=== PATIENT | male | born 1950 ===

== ENCOUNTER 2020-11-27 19:37 | Emergency (ER) | payer MEDICARE, OTHER ==
[~2020-11-27] VITALS: Ht 180.3 cm; Wt 84.0 kg
[2020-11-27 19:37] VITALS: BP 171/112
--- NOTE | 2020-11-27 19:47 | PHYS DOC ---
Past Medical History Past Medical History: No Pertinent History Past Surgical History: No Surgical History Smoking Status: Never Smoker Alcohol Use: None Drug Use: None General Adult EDM: Chief Complaint: Syncope HPI: HPI: Patient is a 70 year old male presents via EMS with report of syncopal episode that occurred just prior to arrival. Patient reports he was at the [employer] standing in line when he suddenly felt very "hot ". Denies any chest pain or palpitations but reports he subsequently "passed out ". Patient reports he did fall. Denies headache or neck pain. Denies any injury. EMS arrived on scene with report of a rapid heart rate in the 220s. Patient denies history of arrhythmia. Denies nausea or vomiting. Upon arrival to the emergency department patient's heart rate had since improved to low 100s. Review of Systems: Review of Systems: Constitutional: Denies fever or chills Eyes: Denies redness or eye pain HENT: Denies nasal congestion or sore throat Respiratory: Denies cough or shortness of breath Cardiovascular: Denies chest pain or palpitations; EMS reports fast heart rate GI: Denies abdominal pain, nausea, or vomiting : Denies dysuria or hematuria Musculoskeletal: Denies back pain or joint pain Integument: Denies rash or skin lesions Neurologic: Denies headache, focal weakness or sensory changes; reports syncopal episode Complete systems were reviewed and found to be within normal limits, except as documented in this note. Heart Score: C/O Chest Pain: N/A Physical Exam: PE: Constitutional: Well developed, well nourished, no acute distress, non-toxic appearance HENT: Normocephalic, atraumatic Eyes: PERRL, EOMI, conjunctiva normal, no discharge Neck: Normal range of motion, no tenderness, supple Lungs & Thorax: No respiratory distress, equal chest rise and fall Cardiovascular: Tachycardic rate, cap refill less than 2 seconds, peripheral pulses intact Abdomen: Soft, no tenderness Skin: Warm, dry, no erythema, no rash Extremities: No tenderness, ROM intact, no edema Neurologic: Alert and oriented X 3, normal motor function, normal sensory function, no focal deficits noted Psychologic: Affect normal, judgment normal EKG: EKG: @1942 Sinus tachycardia at 103bpm, NO ST elevation, QRS 88ms, QT/QTc 338/445ms, nonspecific t wave inversion V1-V2 Radiology/Procedures: Radiology/Procedures: PROCEDURE: PORTABLE CHEST 1V Exam Date: 11/27/2020 7:58 PM XR CHEST 1V Indication: Reason: syncope, palpitations / Spl. Instructions: / History: . FINDINGS/ IMPRESSION: The cardiac silhouette and pulmonary vasculature are within normal limits. There is no focal consolidation, pleural effusion or pneumothorax. The visualized osseous structures are intact. Electronically signed by: Poncho Burns MD (11/27/2020 8:32 PM) [facility] PROCEDURE: CT HEAD WO CONTRAST Exam Date: 11/27/2020 7:[address] HEAD/BRAIN WO Indication: Reason: syncope / Spl. Instructions: / History: . TECHNIQUE: Head CT was performed without intravenous contrast. One or more of the following dose reduction techniques were utilized: *Automated exposure control (AEC) *Adjustment of mA and/or kV according to patient size *Use of iterative reconstruction technique *CT scan done according to ALARA, or ALARA/IMAGE GENTLY FINDINGS: The ventricles and sulci are prominent consistent with cerebral volume loss. Patchy ill-defined low attenuation areas in the subcortical and periventricular white matter bilaterally are consistent with microvascular disease. There is no evidence of acute intracranial hemorrhage, extra-axial collection, mass effect, midline shift, or acute territorial infarct. No lesion of the skull base or the calvarium is seen. The visualized paranasal sinuses, mastoid air cells and orbits are normal in appearance. IMPRESSION: No evidence for acute intracranial abnormality. Volume loss and microvascular disease. Electronically signed by: Poncho Burns MD (11/27/2020 8:12 PM) WESLEYPATSY Course & Med Decision Making: Course & Med Decision Making Pertinent Labs and Imaging studies reviewed. (See chart for details) Patient presents with HPI and physical exam consistent for syncopal episode which might be secondary to episode of SVT. EMS reports heart rate in the 220s which resolved prior to their arrival to the emergency department. EKG here in the department with mild sinus tachycardia. Patient denies any chest pain. Patient neurologically intact. NIHSS 0. Labs obtained and posted to chart. Troponin within normal limits. No signs of acute infection. Chest x-ray clear. Patient offered observation admission for further evaluation and treatment if necessary. Patient elects to follow-up outpatient with cardiology and PCP. Patient stable for discharge with outpatient follow-up with PCP/cardiology. Cardiology referral provided. Discussed findings and plan with patient and spouse, who acknowledge understanding and agreement. Cynthia Disclaimer: Cynthia Disclaimer: This electronic medical record was generated, in whole or in part, using a voice recognition dictation system. NIHSS Stroke Scale NIH Stroke Scale: NIH Stroke Scale Response (Comments) Value Level of Consciousness: 0 Alert/Responsive 0 LOC Questions: 0 Answers both correctly 0 LOC Commands: 0 Performs both tasks 0 Best Gaze: 0 Normal 0 Visual: 0 No visual loss 0 Facial Palsy: 0 Normal, symmetrical 0 Motor - Left Arm 0 No drift 0 Motor - Right Arm 0 No drift 0 Motor - Left Leg 0 No drift 0 Motor: Right Leg 0 No drift 0 Limb Ataxia: 0 Absent 0 Sensory: 0 No loss 0 Best Language: 0 Normal 0 Dysathria: 0 Normal 0 Extinction and Inattention: 0 Normal 0 Total 0 Departure Departure Impression: Primary Impression: Syncope Qualified Codes: R55 - Syncope and collapse Disposition: 01 HOME / SELF CARE / HOMELESS Condition: STABLE Referrals: JONNY WILKINSON MD (PCP) HEIDI POSADAS MD Patient Instructions: Syncope, [id number] Additional Instructions: Increase fluid hydration. JESSIE TOMPKINS DO Nov 27, 2020 19:47
[2020-11-27 20:00] LABS: BASO # 0.1 x10^3/uL (0.0-0.2); BASO % 1 % (0-3); EOS # 0.1 x10^3/uL (0.0-0.7); EOS % 2 % (0-3); HEMATOCRIT 43.1 % (39.0-53.0); HEMOGLOBIN 14.7 g/dL (13.0-17.5); LYMPH # 2.9 x10^3/uL (1.0-4.8); LYMPH % 48 % (24-48); MEAN CORPUSCULAR HEMOGLOBIN 31 pg (25-35); MEAN CORPUSCULAR HGB CONC 34 g/dL (31-37); MEAN CORPUSCULAR VOLUME 90 fL (79-100); MONO # 0.6 x10^3/uL (0.0-1.1); MONO % 9 % (0-9); NEUT # 2.4 x10^3/uL (1.8-7.7); NEUT % 40 % (31-73); PLATELET COUNT 205 x10^3/uL (140-400); RED BLOOD COUNT 4.82 x10^6/uL (4.30-5.70); RED CELL DISTRIBUTION WIDTH 12.6 % (11.5-14.5); WHITE BLOOD COUNT 6.1 x10^3/uL (4.0-11.0)
[2020-11-27] MEDS ORDERED: IV NORMAL SALINE 1000ML BAG 1,000 ML IV ONE (20:00)
[2020-11-27 20:02] LABS: BILIRUBIN,URINE NEGATIVE (NEG); CLARITY,URINE CLEAR; COLOR,URINE YELLOW; NITRITE,URINE NEGATIVE (NEG); PROTEIN,URINE NEGATIVE (NEG-TRACE); UROBILINOGEN,URINE 0.2 mg/dL (0.2 mg/dL)
[2020-11-27 20:07] LABS: BACTERIA,URINE 0 /HPF (0-FEW); WBC,URINE 0 /HPF (0-4)
[2020-11-27 20:11] LABS: CALCIUM 9.2 mg/dL (8.5-10.1); CREATININE 1.4 mg/dL (0.7-1.3); GFR 50.2; POTASSIUM 3.5 mmol/L (3.5-5.1)
--- NOTE | 2020-11-27 20:14 | RAD ---
Exam Date: 11/27/2020 7:[address] HEAD/BRAIN WO Indication: Reason: syncope / Spl. Instructions: / History: . TECHNIQUE: Head CT was performed without intravenous contrast. One or more of the following dose re duction techniques were utilized: *Automated exposure control (AEC) *Adjustment of mA and/or kV according to patient size *Use of iterative reconstruction technique *CT scan done according to ALARA, or ALARA/IMAGE GENTLY FINDINGS: The ventricles and sulci are prominent consistent with cerebral volume loss. Patchy ill-defined low attenuation areas in the subcortical and periventricular white matter bilaterally are consistent with microvascular disease. There is no evidence of acute intracranial hemorrhage, extra-axial collecti on, mass effect, midline shift, or acute territorial infarct. No lesion of the skull base or the calv arium is seen. The visualized paranasal sinuses, mastoid air cells and orbits are normal in appearanc e. IMPRESSION: No evidence for acute intracranial abnormality. Volume loss and microvascular disease. Electronically signed by: Poncho Burns MD (11/27/2020 8:12 PM) [facility]
[2020-11-27 20:24] LABS: ALBUMIN 4.1 g/dL (3.4-5.0); ALBUMIN/GLOBULIN RATIO 1.1 (1.0-1.7); MAGNESIUM 2.1 mg/dL (1.8-2.4); TOTAL BILIRUBIN 0.4 mg/dL (0.2-1.0); TOTAL PROTEIN 7.7 g/dL (6.4-8.2)
--- NOTE | 2020-11-27 20:34 | RAD ---
Exam Date: 11/27/2020 7:58 PM XR CHEST 1V Indication: Reason: syncope, palpitations / Spl. Instructions: / History: . FINDINGS/ IMPRESSION: The cardiac silhouette and pulmonary vasculature are within normal limits. There is no focal consolidation, pleural effusion or pneumothorax. The visualized osseous structures are intact. Electronically signed by: Poncho Burns MD (11/27/2020 8:32 PM) [facility]
--- NOTE | 2020-11-28 15:01 | EKG ---
[facility] [address] [place] [address] Test Date: 2020-11-27 Test Time: 19:42:55 Pat Name: YANNICK BRO Department: Room: Gender: M Manager Sterile: : 1950 Requested By: JESSIE TOMPKINS Order Number: [id number] Reading MD: Measurements Intervals [place] Rate: 103 P: 42 AL: 154 QRS: -35 QRSD: 88 T: 63 QT: 338 QTc: 445 Interpretive Statements SINUS TACHYCARDIA ABNORMAL LEFT AXIS DEVIATION R-S TRANSITION ZONE IN V LEADS DISPLACED TO THE RIGHT LEFT ANTERIOR FASCICULAR BLOCK ABNORMAL ECG RI6.02 No previous ECG available for comparison
== END 2020-11-27 21:03 | disposition home or self-care (01) ==
LOC: ER 19:37
DX: R55 Syncope and collapse (principal); R00.0 Tachycardia, unspecified
CPT/HCPCS: 36415; 70450; 71045; 80053; 81001; 82553; 83735; 84484; 85025; 93005; 96360; 99285; J7030